=== PATIENT | female | born 1995 | race Caucasian/White ===

== ENCOUNTER 2021-12-17 11:49 | Day surgery (SDC) | payer OTHER ==
[2021-11-15 17:10] LABS: BLOOD UREA NITROGEN,BUN 15 mg/dL (7.0-18.0); CHLORIDE,CL 102 mmol/L (98-107); GLUCOSE RANDOM 96 mg/dL (74-106); POTASSIUM,K 3.8 mmol/L (3.5-5.1); SODIUM,NA 140 mmol/L (136-145)
[~2021-12-17 11:49] MED LIST: Sodium Chloride 0.9% 10 ML Syringe FLUSH PRN; Sodium Chloride 0.9% 2.5 ML Syringe FLUSH PRN; Sodium Chloride 0.9% 20 ML SDV IV PRN
[2021-12-17] MEDS ORDERED: Metoclopramide 10 MG/2 ML SDV IVPUSH PRN (12:23)
[2021-12-17] MEDS ORDERED: Morphine 2 MG/ML SYRINGE IVPUSH PRN (12:23)
[2021-12-17] MEDS ORDERED: Ondansetron 4 MG/2 ML SDV IVPUSH PRN (12:23)
[2021-12-17] MEDS ORDERED: HYDROmorphone 1 MG/ML Syringe IVPUSH PRN (12:23)
[2021-12-17] MEDS ORDERED: fentaNYL 100 MCG/2 ML SDV IVPUSH PRN (12:23)
[2021-12-17] MEDS ORDERED: Albuterol 0.083% 2.5 MG/3 ML Neb Soln NEB PRN (12:23)
[2021-12-17] MEDS ORDERED: Naloxone 0.4 MG/ML SDV IVPUSH PRN (12:23)
[2021-12-17] MEDS ORDERED: fentaNYL 100 MCG/2 ML SDV ONE (12:43)
[2021-12-17] MEDS ORDERED: Propofol 200 MG/20 ML SDV ONE (12:43)
[2021-12-17] MEDS ORDERED: Dexmedetomidine 200 MCG/2 ML SDV ONE (12:43)
[2021-12-17] MEDS ORDERED: Midazolam 1 MG/ML 2 ML SDV ONE (12:43)
[2021-12-17] MEDS ORDERED: Water For Injection, Sterile 20 ML ONE (12:45)
[2021-12-17] MEDS ORDERED: Ondansetron 4 MG/2 ML SDV ONE (13:00)
[2021-12-17] MEDS ORDERED: Ketorolac 30 MG/ML SDV ONE (13:00)
[2021-12-17] MEDS ORDERED: ePHEDrine 50 MG/ML SDV ONE (13:03)
[2021-12-17] MEDS ORDERED: Dexamethasone 4 MG/ML 5 ML MDV ONE (13:06)
[2021-12-17] MEDS ORDERED: Acetaminophen/oxyCODONE 325-5 MG Tab PO PRN (13:37)
== END 2021-12-17 15:01 | disposition home or self-care (01) ==
LOC: MW.SDS 11:49
PROVIDERS: ATTEND Obstetrics & Gynecology
DX: D06.9 Carcinoma in situ of cervix, unspecified (principal); N72 Inflammatory disease of cervix uteri; F17.220 Nicotine dependence, chewing tobacco, uncomplicated; Z79.899 Other long term (current) drug therapy; Z88.1 Allergy status to other antibiotic agents; Z88.2 Allergy status to sulfonamides
CPT/HCPCS: 36415; 57460; 80053; 81025; 85027; 86850; 86900; 86901; J1100; J1885; J2250; J2405; J2704; J3010; 00940